=== PATIENT | male | born 1960 | race Caucasian/White ===

== ENCOUNTER 2025-05-04 16:39 | Emergency (ER) | payer OTHER, MEDICAID ==
[~2025-05-04] VITALS: Ht 172.7 cm; Wt 95.0 kg
[~2025-05-04 16:39] MED LIST: ALEN70TA79 PO; AMLO5TAB6 MT; ATOR40TA70 MT; CLAR10 PO; LEVO50TA8 MT; METF-1150 MT
[2025-05-04 16:58] VITALS: O2SAT 98
[2025-05-04 17:34] LABS: BASOPHILS % 0.7 % (0.0-2.0); EOSINOPHILS % 0.3 % (0.0-5.0); HEMATOCRIT. 36.5 % (42.0-52.0); HEMOGLOBIN. 12.6 g/dL (14.0-18.0); LYMPHOCYTES % 13.1 % (20.0-50.0); MEAN PLATELET VOLUME 7.6 fl (7.4-10.4); MONOCYTES % 6.8 % (2.0-8.0); NEUTROPHILS % 79.1 % (40.0-76.0); PLATELET 262 x1000/uL (130-400); RED BLOOD CELL COUNT 3.84 mill/uL (4.7-6.1); RED CELL DISTRIBUTION WIDTH 14.0 % (11.6-14.6)
[2025-05-04 17:43] LABS: CREATININE 1.0 mg/dL (0.6-1.3); UREA NITROGEN BLOOD 11 mg/dL (9-23)
[2025-05-04 17:44] LABS: TROPONIN I HIGH SENSITIVITY 6 ng/L (3.0-53)
[2025-05-04] MEDS: SODIUM CHLORIDE 0.9% 1,000 ML IV ONE (19:09)
[2025-05-04 20:08] LABS: TROPONIN I HIGH SENSITIVITY 4 ng/L (3.0-53)
[2025-05-04] MEDS ORDERED: TRAZ-251 MT (21:01)
[2025-05-04 21:30] VITALS: BP 142/70; PULSE 83; RESP 14; TEMP 36.4; O2SAT 100
== END 2025-05-04 21:47 | disposition home or self-care (01) ==
LOC: ER 16:39
DX: R42 Dizziness and giddiness (principal); R07.89 Other chest pain; R19.7 Diarrhea, unspecified; E11.9 Type 2 diabetes mellitus without complications; E78.00 Pure hypercholesterolemia, unspecified; I10 Essential (primary) hypertension; Z79.84 Long term (current) use of oral hypoglycemic drugs; Z79.890 Hormone replacement therapy; Z79.899 Other long term (current) drug therapy
CPT/HCPCS: 99285; 96360; 71045; 80048; 82962; 85025; 84484; 36415; 93005; J7030